=== PATIENT | male | born 1990 | race Two or more races ===

== ENCOUNTER → 2017-04-27 | Outpatient (CLI) | payer OTHER | END | disposition home or self-care (01) | LOC: MSC 16:00 | PROVIDERS: ATTEND Anesthesiology | DX: M51.16 Intervertebral disc disorders with radiculopathy, lumbar region (principal); M50.10 Cervical disc disorder with radiculopathy, unspecified cervical region; M51.17 Intervertebral disc disorders with radiculopathy, lumbosacral region; V43.02XD Car driver injured in collision with other type car in nontraffic accident, subsequent encounter; Y92.414 Local residential or business street as the place of occurrence of the external cause; Y93.89 Activity, other specified; Y99.8 Other external cause status ==